=== PATIENT | male | born 1995 ===

== ENCOUNTER 2022-12-01 09:42 | Outpatient (AMB) | payer SELFPAY ==
--- NOTE | 2022-12-01 10:18 | AM.OFFWIN_ITS ---
Intake Vital Signs 12/01/22 10:32 Height 6 ft BP 110/60 Blood Pressure Location Rt brachial Position Sitting Pulse 70 Pulse Source Pulse Oximeter Temp 98.2 F Temp Source Oral Pulse Oximetry (%) 98 Intake Visit Reasons: [employer]/Left ankle inf? Intake Note: pt is here for left ankle infection, due to poison negin on bilateral calfs and arms. left calf is most irritated, red, swollen, warm to touch Patient Tobacco Use Status: Former Tobacco user Allergies No Known Allergies Allergy (Verified 12/01/22 10:31) Do you need a note to return to daycare/school/sports/work: No HPI HPI Comments History of Present Illness Details This is a 27-year-old male who presents to the office today for sick visit. Patient complaining of diffuse rash with erythema of the left lower extremity. Patient states he has had poison negin of his bilateral lower and upper extremities. He started to notice worsening erythema of the left extremity with some swelling. He denies any chest pain/tightness, shortness of breath/difficulty breathing, throat swelling/trouble swallowing. [facility] Social History Patient Tobacco Use Status: Former Tobacco user Review of Systems Const All systems reviewed & are unremarkable except as noted in HPI and below Reports no additional complaints Eyes Reports no additional complaints ENT Reports no additional complaints Card Reports no additional complaints Resp Reports no additional complaints GI Reports no additional complaints Musc Reports no additional complaints Skin/Breast Reports system reviewed and no additional complaints, except as documented and Reports rash Neuro Reports no additional complaints Psych Reports no additional complaints Endo Reports no additional complaints Ab/Lymph Reports no additional complaints Aller/Immun Reports no additional complaints Physical Exam Vital Signs: Last Vital Signs Temp 98.2 F 12/01/22 10:32 Pulse 70 12/01/22 10:32 BP 110/60 12/01/22 10:32 Pulse Ox 98 12/01/22 10:32 Const General: cooperative, healthy appearing, no acute distress and well developed Orientation/consciousness: patient oriented x3 HEENT Head: Yes normal to inspection Ears: hearing grossly normal bilaterally General nose exam: Normal external nose present Face and sinus: Yes normal facial exam Mouth: Normal oral and palatal mucosa present Eyes General: appearance normal, both eyes and all related structures Pupils: Equal, round and reactive pupils present EOM: EOMs intact bilaterally Resp Effort & Inspection: normal respiratory effort and no respiratory distress Auscultation: clear to auscultation bilaterally Cardio Rate: regular rate Rhythm: regular rhythm Heart sounds: no gallops, no murmurs and no rubs Peripheral pulses: Peripheral pulses 2+ throughout GI Inspection: No distended Palpation (GI): Soft to palpation and nontender Auscultation: normal bowel sounds Skin Other: Diffuse maculopapular rash with scattered vesicles with some crusting/weeping. On the left lower extremity, there is superimposed erythema of the left anterior stone. Neuro General: patient oriented x3 Cranial nerves: Yes CN's II-XII intact bilaterally and Yes Equal, round and reactive pupils present Gait exam (Neuro): Normal gait present Motor exam (neuro): 5/5 motor strength present throughout Extrem General: Yes normal to inspection, Yes full ROM and Yes no clubbing, cyanosis or edema Psych Appearance: grossly normal Mental Status: mental status grossly normal Assessment & Plan Assessment & Plan (1) Cellulitis of left lower extremity: Code(s): L03.116 - Cellulitis of left lower limb (2) Poison negin dermatitis: Code(s): L23.7 - Allergic contact dermatitis due to plants, except food Plan This is a 27-year-old female who presented to the office today with scattered poison negin rash as well as left lower extremity erythema. History and physical most consistent with poison negin dermatitis with superimposed cellulitis of the left lower extremity. Patient sent home on p.o. cephalexin 500 mg 4 times daily x7 days as well as a prolonged steroid taper. Patient advised to follow-up here go to the emergency room for any persistent or worsening symptoms. Patient verbalized understanding and is agreeable with the plan. Medications: New cephalexin 500 mg PO QID 28 caps 0RF prednisone Take 4 tablets daily x 4 days, 3 tablets daily x 4 days, 2 tablets daily x 4 days, 1 tablet daily x 4 days. 10 mg PO DIRECTED 40 tabs 0RF Coding Level of Care Code New Pt Level 3 (29458) Diagnoses Cellulitis of left lower extremity L03.116 Poison negin dermatitis L23.7
[2022-12-01 10:32] VITALS: BP 110/60; PULSE 70; TEMP 36.8; O2SAT 98
== END 2022-12-01 11:05 | disposition home or self-care (01) ==
PROVIDERS: Visit Provider Physician Assistant Medical
DX: L03.116 Cellulitis of left lower limb (principal); L23.7 Allergic contact dermatitis due to plants, except food
CPT/HCPCS: 99051; 99203